=== PATIENT | male | born 1945 | race Asian ===

== ENCOUNTER 2021-06-27 17:10 | Emergency (ER) | payer MEDICARE, OTHER ==
[~2021-06-27] VITALS: Ht 165.1 cm; Wt 59.4 kg
[2021-06-27 17:38] VITALS: BP 170/77
--- NOTE | 2021-06-27 20:04 | NUR ---
MULTIPLE ATTEMPTS MADE TO CALL PATIENT FOR D/C INSTRUCTIONS. PT NOT ANSWERING. PT LEFT WITHOUT DISCHARGE PAPERWORK.
== END 2021-06-27 20:05 | disposition home or self-care (01) ==
LOC: MED 17:10
DX: I10 Essential (primary) hypertension (principal)
CPT/HCPCS: 99281